=== PATIENT | male | born 1995 | race Caucasian/White ===

== ENCOUNTER 2019-10-15 08:21 | Outpatient (CLI) | payer OTHER ==
--- NOTE | 2019-10-15 08:45 | ULT ---
Sonogram right upper quadrant HISTORY: Right upper quadrant pain. FINDINGS: Gallbladder has a normal appearance without stone. Common duct is 0.4 cm. Liver unremarkabl e without focal mass or intrahepatic biliary dilatation. No free fluid. IMPRESSION: Normal exam.
== END 2019-10-15 08:22 | disposition home or self-care (01) ==
LOC: BICULT 08:21
PROVIDERS: ATTEND Family Medicine
DX: R10.9 Unspecified abdominal pain (principal)
CPT/HCPCS: 76705

== ENCOUNTER 2021-01-18 11:51 | Outpatient (CLI) | payer OTHER | END 2021-01-18 11:52 | disposition home or self-care (01) | LOC: BICRAD 11:51 | PROVIDERS: ATTEND Family Medicine | DX: M12.811 Other specific arthropathies, not elsewhere classified, right shoulder (principal) ==

== ENCOUNTER 2021-02-15 14:48 | Outpatient (CLI) | payer OTHER | END 2021-02-15 14:49 | disposition home or self-care (01) | LOC: BICMRI 14:48 | PROVIDERS: ATTEND Family Medicine | DX: M19.011 Primary osteoarthritis, right shoulder (principal) ==